=== PATIENT | female | born 1995 | race Caucasian/White ===

== ENCOUNTER 2016-10-07 17:17 | Emergency (ER) | payer OTHER ==
[~2016-10-07] VITALS: Ht 165.1 cm; Wt 66.8 kg
[2016-10-07 17:19] VITALS: BP 161/79; TEMP 98.7
[2016-10-07] MEDS ORDERED: ADDERALL XR30 MG PO (17:24)
[2016-10-07 18:31] VITALS: PULSE 89
== END 2016-10-07 18:32 | disposition home or self-care (01) ==
LOC: COL.ER 17:17
DX: S93.602A Unspecified sprain of left foot, initial encounter (principal); X50.1XXA Overexertion from prolonged static or awkward postures, initial encounter; Y93.67 Activity, basketball; Y92.310 Basketball court as the place of occurrence of the external cause

== ENCOUNTER 2017-10-23 23:42 | Emergency (ER) | payer OTHER ==
[~2017-10-23] VITALS: Ht 165.1 cm; Wt 63.6 kg
[~2017-10-23 23:42] MED LIST: ADDERALL XR30 MG PO
[2017-10-23 23:46] VITALS: BP 142/94; PULSE 104; TEMP 98.5
== END 2017-10-24 00:45 | disposition home or self-care (01) ==
LOC: COL.ER 23:42
DX: S51.812A Laceration without foreign body of left forearm, initial encounter (principal); W26.8XXA Contact with other sharp object(s), not elsewhere classified, initial encounter